=== PATIENT | male | born 2005 | race Caucasian/White ===

== ENCOUNTER 2023-07-15 13:17 | Emergency (ER) | payer BC, SELFPAY ==
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
[2023-07-15 13:58] VITALS: BP 116/66; PULSE 91; RESP 16; TEMP 36.7; O2SAT 100
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
== END 2023-07-15 16:04 | disposition home or self-care (01) ==
PROVIDERS: Emergency Provider Nurse Practitioner Family
DX: S39.012A Strain of muscle, fascia and tendon of lower back, initial encounter (principal); S29.012A Strain of muscle and tendon of back wall of thorax, initial encounter; S69.91XA Unspecified injury of right wrist, hand and finger(s), initial encounter; S89.91XA Unspecified injury of right lower leg, initial encounter; F84.0 Autistic disorder; M47.816 Spondylosis without myelopathy or radiculopathy, lumbar region; M47.814 Spondylosis without myelopathy or radiculopathy, thoracic region; Y04.0XXA Assault by unarmed brawl or fight, initial encounter
CPT/HCPCS: 72072; 72100; 73110; 73564; 99284